=== PATIENT | female | born 1960 | race Caucasian/White ===

== ENCOUNTER 2016-08-31 16:22 | Observation (INO) | payer OTHER ==
--- NOTE | ~2016-08-31 | HP ---
History And Physical [facility] [address] [place]. [address] NAME: GERMAIN GRANGER : 56 STATUS : ADM [facility] PAT#: [id number] AGE: 56 ADM/REG DATE : 08/31/16 MR#: [id number] REPORT SERV DATE: 08/31/16 DICTATED BY: AGUSTIN ALEJANDRE DATE: 08/31/16 REPORT STATUS : Draft TRANSCRIBED BY: MODL DATE: 08/31/16 DATE OF ADMISSION: 08/31/2016 CHIEF COMPLAINT: Sent from preop for elevated heart rate. HISTORY OF PRESENT ILLNESS: The patient is a 56-year-old female with past medical history of asthma and COPD, ELLA noncompliant with BiPAP, bipolar, anxiety, diverticulitis, breast cancer, arthritis, hiatal hernia, depression who presents after having gone to preop after having multiple teeth removed today and was having preop evaluation for hernia scheduled for tomorrow but was reported to have heart rate that was elevated. The patient reports the heart rate, she was told was 240. Upon arrival, her heart rate was around 140s. Symptoms were constant, moderate severity. The patient denies any chest pain or radiating symptoms. No headache or fevers but did have increased anxiety after being told she had elevated heart rate. She does have COPD history and has had increased shortness of breath. The patient did not have any anesthesias because she was unable to afford having anesthesia for teeth removal, did have notable amount of pain after procedure. There are no worsening symptoms but no relieving symptoms. Symptoms are still currently present. REVIEW OF SYSTEMS: GENERAL: No fever or chills. EYES: No eye pain or visual changes. ENT: Does have removal of teeth which did have slight pain. No congestion. NEURO: No headache or confusion. SKIN: No rashes or bruising. RESPIRATORY: Does have shortness of breath with occasional wheezing. CV: Tachycardic but no chest pain. GI: No nausea, vomiting. : No dysuria or hematuria. MUSCULOSKELETAL: No myalgias or arthralgias above baseline. ENDO: No fatigue or polyuria. HEME: No bleeding or bruising except for at site of removal but this is healing. IMMUNOLOGIC: No rhinorrhea. PSYCH: No anxiety or confusion. PAST MEDICAL HISTORY: Tremors, arthritis, GERD, hiatal hernia, anxiety, bipolar, depression, diverticulitis, morbid obesity, breast cancer status post radical mastectomy. SURGICAL HISTORY: Tonsillectomy, hysterectomy, mastectomy, right knee scope, tubal ligation, bladder sling, and total knee. SOCIAL HISTORY: Smoker with COPD history. No alcohol or illicits. FAMILY HISTORY: Cancer. ALLERGIES: IV CONTRAST, ADHESIVE TAPE, AND ALLERGY INJECTIONS. History And Physical [facility] [address] [place]. [address] NAME: GERMAIN GRANGER : 56 STATUS : ADM [facility] PAT#: [id number] AGE: 56 ADM/REG DATE : 08/31/16 MR#: [id number] REPORT SERV DATE: 08/31/16 DICTATED BY: AGUSTIN ALEJANDRE DATE: 08/31/16 REPORT STATUS : Draft TRANSCRIBED BY: AKIL DATE: 08/31/16 MEDICATIONS: ProAir, Xanax, Zyrtec, Nexium, Flonase, Breo Ellipta, Robaxin, Avelox, Percocet, Klor-Con, Lyrica, roflumilast, Requip, Imitrex, and Spiriva. PHYSICAL EXAMINATION: VITAL SIGNS: Blood pressure 137/85, temperature 97.8, pulse was initially 133 down to 95, respirations initially 22 down to 16, and O2 sats 92% on 2 L. GENERAL: Obese, no acute distress, but moderately anxious. EYES: No scleral icterus. EOMI. ENT: Nares patent. Does have removed teeth and plate and upper bridge work. No active bleeding. RESPIRATORY: Mildly tachypneic but does have end-expiratory wheeze. No stridor. CV: Mildly tachycardic. No rubs, does have trace edema bilaterally. GI: Soft, nontender. Central obesity. : Deferred. MUSCULOSKELETAL: Moves all extremities x4. SKIN: Warm and dry. LYMPH: No cervical or supraclavicular lymphadenopathy but does have 1+ edema bilaterally. NEURO: Alert and oriented. Moves all extremities x4. PSYCHIATRIC: Mildly anxious. Appropriate mood. DATA: EKG; sinus tach at a rate of 129, QTc 457. Urinalysis negative. BNP 32.7, WBC 11, H and H 11.6 and 36.5, platelets 291, INR 1.0. Sodium 144, potassium 3.2, BUN and creatinine 22 and 0.71, calcium 8.2, glucose 61. Chest PA and lateral; no acute cardiopulmonary findings. ASSESSMENT AND PLAN: 1. Acute chronic obstructive pulmonary disease exacerbation. 2. Tachycardia with systemic inflammatory response syndrome. 3. Anxiety. 4. Planned hernia repair. 5. Chronic pain. 6. Obesity. 7. Recent tooth extraction. 8. Obstructive sleep apnea. 9. Hypokalemia. PLAN: 1. For acute COPD exacerbation; O2, DuoNeb, steroid protocol initiated. Stop smoking. 2. Tachycardia with SIRS. Check echocardiogram, treat underlying COPD improved with anxiety but does have 1+ edema bilaterally and sleep apnea component. We will check echocardiogram to evaluate. 3. Anxiety p.r.n. 4. Planned hernia repair. We will need to notify Dr. Bai as the patient has scheduled OR procedure tomorrow, however, due to respiratory COPD does not appear to be compensated at this time, will need to be rescheduled when SIRS symptoms and COPD resolve. History And Physical [address] [address] NAME: GERMAIN GRANGER : 56 STATUS : ADM [facility] PAT#: [id number] AGE: 56 ADM/REG DATE : 08/31/16 MR#: [id number] REPORT SERV DATE: 08/31/16 DICTATED BY: AGUSTIN ALEJANDRE DATE: 08/31/16 REPORT STATUS : Draft TRANSCRIBED BY: AKIL DATE: 08/31/16 5. Chronic pain, p.r.n. 6. Obesity, needs to lose weight. She has planned hernia repair tomorrow but will likely need to reschedule. 7. Recent tooth extraction. Extraction healing. 8. Obstructive sleep apnea. I explained importance of compliance and importance of compliance with CPAP pre, during, and post hernia repair. Decreased anxiety level. Monitor blood pressure and oxygenation, does use 4 L by nasal cannula at night. 9. Hypokalemia, replaced per protocol. DDN/MODL Agustin Alejandre MD / [id number] CC: MD Issa Amos MD
--- NOTE | ~2016-08-31 | DS ---
Discharge Summary [facility] [address] [place]. [address] NAME: GERMAIN GRANGER : 56 STATUS : DIS [facility] PAT#: [id number] AGE: 56 ADM/REG DATE : 08/31/16 MR#: [id number] REPORT SERV DATE: 09/02/16 DICTATED BY: JULIETTE SCHULTE DATE: 09/01/16 REPORT STATUS : Draft TRANSCRIBED BY: AKIL DATE: 09/01/16 ADMISSION DATE: 08/31/2016 DISCHARGE DATE: 09/01/2016 PRINCIPAL DIAGNOSIS: Postoperative tachycardia following dental extraction. SECONDARY DIAGNOSIS: Chronic obstructive pulmonary disease with mild exacerbation, ventral hernia. HISTORY OF PRESENT ILLNESS: The patient was in preop after just having had a surgery the same day with a dental root extract and found to be tachycardic and short of breath. She was recommended not to undergo surgery and she was admitted to the hospital for observation. The tachycardia was found to be sinus and not dangerous. Her COPD was found to be mild. She was given nebs and steroids overnight, but these were quickly discontinued. Her main issue was her chronic pain, which was exacerbated by her recent dental extraction. She was resumed on her Percocet. Other home medicines were continued and she would follow up with Dr. Bai for the ventral hernia repair some later date and with Dr. Issa Prasad this coming week. DEEPALI/AKIL Juliette Schulte M.D. / [id number] CC: Khadar Bai MD
[2016-08-31 15:56] LABS: BASOPHILS 0.1 %; BASOPHILS ABSOLUTE 0.01 10/3/uL (0.0-0.16); EOSINOPHILS 0.3 %; EOSINOPHILS ABSOLUTE 0.03 10/3/uL (0.0-0.53); ER CBC TAT 0 Hrs 05 Mins; HEMATOCRIT 36.5 % (36.0-48.0); HEMOGLOBIN 11.6 g/dL (12.0-16.0); IMMATURE GRANULOCYTES 0.6 %; IMMATURE GRANULOCYTES ABSOLUTE 0.07 10/3/uL (0.0-0.11); LYMPHOCYTES 15.7 %; LYMPHOCYTES ABSOLUTE 1.72 10/3/uL (0.67-4.30); MEAN CORPUSCULAR HEMOGLOB 27.4 pg (26.0-34.0); MEAN CORPUSCULAR VOLUME 86.3 fL (80-100); MEAN PLATELET VOLUME 8.8 fL (9.2-13.0); MONOCYTES 11.6 %; MONOCYTES ABSOLUTE 1.27 10/3/uL (0.21-1.20); NEUTROPHILS 71.7 %; NEUTROPHILS ABSOLUTE 7.88 10/3/uL (2.02-8.40); PLATELET COUNT 291 10/3/uL (150-400); RBC DISTRIBUTION WIDTH 15.1 % (12.0-16.0); RED CELL COUNT 4.23 10/6/uL (4.0-5.6)
[2016-08-31 15:57] LABS: MANUAL DIFF NO %; MEAN CORPUS HGB CONC 31.8 g/dL (32.0-36.0)
[2016-08-31 16:02] LABS: PROTIME (NOT ORD) 13.5 SEC (12.0-14.5)
[2016-08-31 16:03] LABS: PARTIAL THROMBO TIME 27.6 SEC (22.5-37.2)
[2016-08-31 16:12] LABS: BUN (BLOOD UREA NITROGEN) 22 MG/DL (6-23); CALCIUM, SERUM 8.2 MG/DL (8.5-10.4); CHEST PAIN PROFILE TAT 0 Hrs 21 Mins; CHLORIDE, SERUM 104 MMOL/L (96-112); CO2 (CARBON DIOXIDE) 27 MMOL/L (24-34); CREATININE 0.85 MG/DL (0.55-1.02); GFR AFRICAN AMERICAN 88 ML/MIN (>=60); GFR NON AFRICAN AMERICAN 76 ML/MIN (>=60); GLUCOSE, SERUM 130 MG/DL (60-99); POTASSIUM, SERUM 3.5 MMOL/L (3.5-5.3); SODIUM, SERUM 142 MMOL/L (135-148); TROPONIN I <0.02 NG/ML (<0.05)
[~2016-08-31 16:22] MED LIST: *UNABLE1; ABILIFY20 MG PO; ACCUNE1 INH; ACETYLCYSTEINE PO; ADVAIR INH; AMB10 PO; BREO ELLIPTA INH; CALTRA600D PO; CENTRUM TAB1 TAB PO; CO Q-10100 MG PO; DALIRESP500 MCG PO; DULERA 200 MCG/13 GM INH; DULERA INHALER; FLAG500TAB PO; FLONASE NAS; IMITREX50 PO; KLOR-CON 88 MEQ PO; LEVAQUIN750 MG PO; LEXAPRO10 PO; LIOR10 PO; LIPOTRIAD1 CAP PO; LYRICA PO; LYRICA100 MG PO; LYRICA75 PO; METHOC500B PO; MORPHINE; MSCONT100 PO; NAC 600 PO; NEXIUM40 PO; OPANA ER30 MG PO; OPANA ER40 MG PO; OXAPROZIN600 MG PO; PERCOCET PO; PERCOCET1 TA2 PO; PERCOCET1 TA4 PO; PR25 PO; PRIM250 PO; PROAIR HFA INH; Percocet PO; REQUIP2 PO; SIMVASTATIN PO; SINGULAIR1 PO; SPIRIVA INH; TOPAMAX PO; TOPAMAX200 MG PO; VENTOLIN HFA INH; VITAMIN D1000 UNI1 PO; XANAX1 MG PO; XOPENEX HFA INH; ZOCOR40 PO; ZYRTEC ALLGY10 MG PO; [UNRECOGNIZED DRUG - OTHER]
[2016-08-31 16:50] LABS: D-DIMER QUANTITATIVE 0.28 ug/mLFEU (< 0.50)
[2016-08-31 17:29] LABS: ASCORBIC ACID (UR NOT ORDER) NEG (NEG); BILIRUBIN, URINE NEGATIVE (NEG); ER URINALYSIS TAT 0 Hrs 10 Mins; KETONE, URINE NEGATIVE (NEG); LEUKOCYTE ESTERASE(NOT OR NEG (NEG); NITRITE (URINE) NEG (NEG); WBC (NOT ORDERED) (RFLEX) < 1 (0-5)
[2016-08-31] MEDS ORDERED: XANAX1 MG PO (18:33)
[2016-08-31] MEDS ORDERED: PERCOCET 10/3251 TAB PO (18:33)
[2016-08-31] MEDS ORDERED: PROAIR HFA INH (18:33)
[2016-08-31] MEDS ORDERED: ZYRTEC ALLGY10 MG PO (18:34)
[2016-08-31] MEDS ORDERED: FLONASE NAS (18:34)
[2016-08-31] MEDS ORDERED: NEXIUM40 PO (18:34)
[2016-08-31] MEDS ORDERED: BREO ELLIPTA INH (18:34)
[2016-08-31] MEDS ORDERED: SPIRIVA INH (18:35)
[2016-08-31] MEDS ORDERED: DALIRESP500 MCG PO (18:35)
[2016-08-31] MEDS ORDERED: METHOC500B PO (18:35)
[2016-08-31] MEDS ORDERED: LYRICA100 MG PO (18:35)
[2016-08-31] MEDS ORDERED: KLOR-CON 88 MEQ PO (18:35)
[2016-08-31] MEDS ORDERED: IMITREX50 PO (18:36)
[2016-08-31] MEDS ORDERED: REQUIP2 PO (18:36)
[2016-08-31] MEDS ORDERED: AVELOX400 PO (18:37)
[2016-08-31 22:02] LABS: BASOPHILS 0.1 %; BASOPHILS ABSOLUTE 0.01 10/3/uL (0.0-0.16); EOSINOPHILS 0 %; HEMATOCRIT 35.8 % (36.0-48.0); HEMOGLOBIN 11.9 g/dL (12.0-16.0); IMMATURE GRANULOCYTES 0.5 %; IMMATURE GRANULOCYTES ABSOLUTE 0.05 10/3/uL (0.0-0.11); LYMPHOCYTES 5.1 %; LYMPHOCYTES ABSOLUTE 0.56 10/3/uL (0.67-4.30); MANUAL DIFF NO %; MEAN CORPUS HGB CONC 33.2 g/dL (32.0-36.0); MEAN CORPUSCULAR HEMOGLOB 29.2 pg (26.0-34.0); MEAN CORPUSCULAR VOLUME 87.7 fL (80-100); MEAN PLATELET VOLUME 8.9 fL (9.2-13.0); MONOCYTES 1.6 %; MONOCYTES ABSOLUTE 0.17 10/3/uL (0.21-1.20); NEUTROPHILS 92.7 %; NEUTROPHILS ABSOLUTE 10.14 10/3/uL (2.02-8.40); PLATELET COUNT 274 10/3/uL (150-400); RBC DISTRIBUTION WIDTH 14.9 % (12.0-16.0); RED CELL COUNT 4.08 10/6/uL (4.0-5.6); WHITE BLOOD CELLS 10.9 10/3/uL (4.5-10.5)
[2016-09-01 04:52] LABS: CALCIUM, SERUM 8.7 MG/DL (8.5-10.4); CHLORIDE, SERUM 104 MMOL/L (96-112); CO2 (CARBON DIOXIDE) 30 MMOL/L (24-34); CREATININE 0.59 MG/DL (0.55-1.02); GFR AFRICAN AMERICAN 117 ML/MIN (>=60); GFR NON AFRICAN AMERICAN 101 ML/MIN (>=60); SODIUM, SERUM 141 MMOL/L (135-148)
[2016-09-01 05:03] LABS: BUN (BLOOD UREA NITROGEN) 16 MG/DL (6-23); GLUCOSE, SERUM 168 MG/DL (60-99); POTASSIUM, SERUM 4.6 MMOL/L (3.5-5.3)
[2016-09-01 05:13] LABS: BASOPHILS 0 %; EOSINOPHILS 0 %; HEMATOCRIT 35.8 % (36.0-48.0); HEMOGLOBIN 11.3 g/dL (12.0-16.0); IMMATURE GRANULOCYTES 0.7 %; IMMATURE GRANULOCYTES ABSOLUTE 0.06 10/3/uL (0.0-0.11); LYMPHOCYTES 6.7 %; LYMPHOCYTES ABSOLUTE 0.58 10/3/uL (0.67-4.30); MEAN CORPUS HGB CONC 31.6 g/dL (32.0-36.0); MEAN CORPUSCULAR HEMOGLOB 27.7 pg (26.0-34.0); MEAN CORPUSCULAR VOLUME 87.7 fL (80-100); MONOCYTES 1.7 %; MONOCYTES ABSOLUTE 0.15 10/3/uL (0.21-1.20); NEUTROPHILS 90.9 %; NEUTROPHILS ABSOLUTE 7.87 10/3/uL (2.02-8.40); PLATELET COUNT 263 10/3/uL (150-400); RBC DISTRIBUTION WIDTH 14.7 % (12.0-16.0); RED CELL COUNT 4.08 10/6/uL (4.0-5.6); WHITE BLOOD CELLS 8.7 10/3/uL (4.5-10.5)
[2016-09-01 05:18] LABS: MANUAL DIFF NO %
[2016-09-29] MEDS ORDERED: CHANTIX1 PO (11:53)
[2016-09-29] MEDS ORDERED: MYRBETRIQ50 MG PO (11:53)
[2016-09-29] MEDS ORDERED: PR25 PO (11:54)
[2016-09-29] MEDS ORDERED: ZOFRAN4 PO (11:54)
[2017-02-19] MEDS ORDERED: DALIRESP500 MCG PO (21:07)
[2017-02-19] MEDS ORDERED: MYRBETRIQ50 MG PO (21:07)
[2017-02-19] MEDS ORDERED: ALBUTEROL0.083 % INH (21:08)
[2017-02-19] MEDS ORDERED: LYRICA100 MG PO (21:11)
[2017-02-19] MEDS ORDERED: ABILIFY5 PO (21:13)
[2017-02-19] MEDS ORDERED: XANAX1 MG PO (21:13)
[2017-02-19] MEDS ORDERED: TRAZ50 PO (21:14)
[2017-02-19] MEDS ORDERED: KLOR-CON 88 MEQ PO (21:14)
[2017-02-19] MEDS ORDERED: REQUIP2 PO (21:14)
[2017-02-19] MEDS ORDERED: SINGULAIR1 PO (21:16)
[2017-02-19] MEDS ORDERED: INCRUSE ELLI62.5 MCG INH (21:16)
[2017-02-19] MEDS ORDERED: NEXIUM40 PO (21:17)
[2017-02-19] MEDS ORDERED: FLONASE NAS (21:18)
[2017-02-19] MEDS ORDERED: PROAIR HFA INH (21:18)
[2017-02-19] MEDS ORDERED: MULTIVIT/MIN PO (21:19)
[2017-02-19] MEDS ORDERED: VITAMIN B-122500 MCG PO (21:19)
[2017-02-19] MEDS ORDERED: LIPITOR20 PO (21:19)
[2017-02-19] MEDS ORDERED: MOTRIN IB200 MG PO (21:19)
[2017-02-19] MEDS ORDERED: AMIT25 PO (21:20)
[2017-02-19] MEDS ORDERED: MAGOX4 PO (21:21)
[2017-02-19] MEDS ORDERED: ULTRAM50 PO (21:21)
[2017-02-19] MEDS ORDERED: LOP50 PO (21:22)
[2017-02-19] MEDS ORDERED: IMITREX50 PO (21:22)
[2017-02-19] MEDS ORDERED: BREO ELLIPTA INH (21:27)
[2017-02-19] MEDS ORDERED: PREDNISONE (21:31)
== END 2016-09-01 12:52 | disposition home or self-care (01) ==
LOC: ER 16:22 → 4SO 19:35
PROVIDERS: Emergency Medicine; Student in an Organized Health Care Education/Training Program
DX: J44.1 Chronic obstructive pulmonary disease with (acute) exacerbation (principal); I97.89 Other postprocedural complications and disorders of the circulatory system, not elsewhere classified; R00.0 Tachycardia, unspecified; K08.409 Partial loss of teeth, unspecified cause, unspecified class; I10 Essential (primary) hypertension; J45.909 Unspecified asthma, uncomplicated; G47.33 Obstructive sleep apnea (adult) (pediatric); F31.9 Bipolar disorder, unspecified; E87.6 Hypokalemia; F41.9 Anxiety disorder, unspecified; G89.29 Other chronic pain; K43.9 Ventral hernia without obstruction or gangrene; K44.9 Diaphragmatic hernia without obstruction or gangrene; F17.210 Nicotine dependence, cigarettes, uncomplicated; M19.90 Unspecified osteoarthritis, unspecified site; Z79.1 Long term (current) use of non-steroidal anti-inflammatories (NSAID); Z98.51 Tubal ligation status; Z79.899 Other long term (current) drug therapy; Z91.048 Other nonmedicinal substance allergy status; Z90.710 Acquired absence of both cervix and uterus; Z91.041 Radiographic dye allergy status; Z91.19 Patient's noncompliance with other medical treatment and regimen; Z90.89 Acquired absence of other organs; Z85.3 Personal history of malignant neoplasm of breast
CPT/HCPCS: 71020; 80048; 81001; 83735; 83880; 84484; 85025; 85379; 85610; 85730; 93005; 94640; 96372; 96374; 96375; 96376; 97161-GP; 99285; A9270-GY; C8929; G0378; J1170; J2920; J2930; Q9957